=== PATIENT | female | born 1990 | race African-American/Black ===

== ENCOUNTER 2017-12-26 09:30 | Emergency (ER) | payer MEDICAID, OTHER ==
[2017-12-26 10:42] LABS: Bilirubin Negative (Negative); Blood, Urine Large (Negative); Clarity TURBID (Clear); Glucose, Urine (Dipstick) Negative (Negative); Leukocyte Large (Negative); Nitrite Positive (Negative); Protein, Urine (Dipstick) 100 mg/dL (Neg-Trace); Specific Gravity, Urine 1.025 (1.002-1.036); Urobilinogen 0.2 mg/dL (0.2-1.0); pH, Urine 5.5 (5.0-9.0)
[2017-12-26 10:44] LABS: Pregnancy Test - Urine (BHCG) Negative (Negative); Pregu Control Background? CLEAR/WHITE (CLR/WHITE); Pregu Control Bar Appear? YES (CONTROL BAR); Specific Gravity 1.025 (1.002-1.036)
[2017-12-26 10:49] LABS: Bacteria/HPF 3+ HPF (None Seen); Hyaline Casts/LPF 7-10 HYALINE CAST LPF (0-3 Hyaline); Pathc Cast-AUWi Flag 2.02 (0-2.49); Squamous Epithelial 0-3 HPF (0-3)
[2017-12-26 11:01] LABS: RBC/HPF 21-50 HPF (0-3); Yeast-All Forms None Seen HPF (None Seen)
== END 2017-12-26 17:04 | disposition home or self-care (01) ==
LOC: ERS 09:30
DX: N12 Tubulo-interstitial nephritis, not specified as acute or chronic (principal); G43.909 Migraine, unspecified, not intractable, without status migrainosus; F17.210 Nicotine dependence, cigarettes, uncomplicated
CPT/HCPCS: 81003; 81015; 81025; 99283

== ENCOUNTER 2017-12-28 07:32 | Emergency (ER) | payer MEDICAID ==
[2017-12-28 08:25] LABS: Bilirubin Negative (Negative); Blood, Urine Trace (Negative); Clarity CLEAR (Clear); Glucose, Urine (Dipstick) Negative (Negative); Leukocyte Small (Negative); Nitrite Negative (Negative); Protein, Urine (Dipstick) Trace mg/dL (Neg-Trace); Specific Gravity, Urine 1.014 (1.002-1.036); pH, Urine 6.5 (5.0-9.0)
[2017-12-28 08:27] LABS: Bacteria/HPF None Seen HPF (None Seen); Hyaline Casts/LPF 0-3 HYALINE CAST LPF (0-3 Hyaline); Pathc Cast-AUWi Flag 0.14 (0-2.49); WBC/HPF 21-50 HPF (0-3)
[2017-12-28 08:29] LABS: Pregnancy Test - Urine (BHCG) Negative (Negative); Pregu Control Background? CLEAR/WHITE (CLR/WHITE); Pregu Control Bar Appear? YES (CONTROL BAR); Specific Gravity 1.014 (1.002-1.036)
[2017-12-28 08:36] LABS: #Eosinphils 0.1 thou/uL (0.0-0.7); #Lymphocytes 1.1 thou/uL (1.20-3.40); #Neutrophils 7.1 thou/uL (1.40-6.50); %Basophils 0.3 % (0.0-1.0); %Lymphocytes 11.6 % (21.0-51.0); %Monocytes 10.4 % (0.0-10.0); %Neutrophils 76.7 % (42.0-75.0); Hemoglobin 13.5 g/dL (12.0-16.0); Mean Corpuscular HGB CONC 32.9 g/dL (32.0-36.0); Mean Corpuscular Hemoglobin 31.4 pg (27.0-31.0); Mean Corpuscular Volume 95.4 fl (81.0-99.0); Mean Platelet Volume 8.8 fL (7.4-10.4); Platelet Count 211 thou/uL (130-400); RBC Distribution Width 11.9 % (11.5-14.5); Red Blood Cell (RBC) Count 4.31 mill/uL (4.20-5.40); White Blood Cell (WBC) Count 9.2 thou/uL (4.8-10.8)
[2017-12-28 08:36] LABS: Renal Epithelial 0-3 HPF (0-3); Transitional Epithelial 0-3 HPF (0-3)
[2017-12-28 08:38] LABS: BHCG - Serum Negative (NEGATIVE); Pregs Control Background? CLEAR/WHITE (CLR/WHITE); Pregs Control Bar Appear? YES (CONTROL BAR)
[2017-12-28 08:46] LABS: ALT (SGPT) 16 U/L (8-55); AST (SGOT) 14 U/L (5-34); Albumin 4.1 g/dL (3.5-5.0); Alkaline Phosphatase 60 U/L (40-150); Anion Gap 10 mmol/L (10-20); BUN (Urea Nitrogen) 6 mg/dL (7.0-18.7); Bilirubin, Total 0.3 mg/dL (0.2-1.2); Calc. Creatinine Clearance 0 mL/min (70-130); Calcium 9.5 mg/dL (7.8-10.44); Carbon Dioxide 24 mmol/L (22-29); Chloride 105 mmol/L (98-107); Estimated GFR-MDRD Greater than 90; Globulin 3.1 g/dL (2.4-3.5); Glucose 79 mg/dL (70-105); Lipase 16 U/L (8-78); Potassium 3.3 mmol/L (3.5-5.1); Protein, Total 7.2 g/dL (6.0-8.3); Sodium 136 mmol/L (136-145)
[2017-12-28] MEDS ORDERED: Ketorolac Tromethamine 30 MG/ML VIAL ONE (09:02)
--- NOTE | 2017-12-28 09:17 | CT ---
CT ABDOMEN AND PELVIS WITHOUT CONTRAST: Date: 12/28/17 INDICATION: UTI symptoms for 2 days, currently on antibiotics, without fever or chills. FINDINGS: No renal or ureteral calculus is evident. No hydronephrosis is noted. The partially distended bladder appears within normal limits. No free fluid or enlarged lymph nodes are evident. Unopacified liver, spleen, pancreas, adrenal glands, bowel, and uterus appear within normal limits. T here is a normal appendix in the right lower quadrant. There are numerous phleboliths within the lowe r pelvis. A small amount of free fluid is seen within the pelvis. No acute osseous abnormality is ching dent. IMPRESSION: No acute abnormality. POS: CET
[2017-12-28] MEDS ORDERED: Meropenem 1 GM in Sodium Chloride 0.9% 100 ML IVPB SCH (09:30)
== END 2017-12-28 11:09 | disposition home or self-care (01) ==
LOC: ERS 07:32
DX: N30.01 Acute cystitis with hematuria (principal); G43.909 Migraine, unspecified, not intractable, without status migrainosus; F17.210 Nicotine dependence, cigarettes, uncomplicated; Z79.899 Other long term (current) drug therapy
CPT/HCPCS: 36415; 74176; 80053; 81003; 81015; 81025; 83605; 83690; 84703; 85025; 87040; 87086; 96361; 96365; 96375; J1885; J1956; J2185; J7050

== ENCOUNTER 2018-04-17 21:30 | Emergency (ER) | payer MEDICAID, SELFPAY ==
[2018-04-18 00:14] LABS: #Basophils 0.1 thou/uL (0.0-0.2); #Eosinphils 0.1 thou/uL (0.0-0.7); #Lymphocytes 2.5 thou/uL (1.20-3.40); #Monocytes 0.5 thou/uL (0.11-0.59); %Basophils 1.1 % (0.0-1.0); %Eosinophils 1.7 % (0.0-10.0); %Lymphocytes 34.4 % (21.0-51.0); %Monocytes 6.7 % (0.0-10.0); Hemoglobin 13.8 g/dL (12.0-16.0); Mean Corpuscular HGB CONC 34.3 g/dL (32.0-36.0); Mean Corpuscular Hemoglobin 31.8 pg (27.0-31.0); Mean Corpuscular Volume 92.7 fL (78.0-98.0); Mean Platelet Volume 8.9 fL (7.4-10.4); Platelet Count 214 thou/uL (130-400); RBC Distribution Width 11.9 % (11.5-14.5); Red Blood Cell (RBC) Count 4.33 mill/uL (4.20-5.40); White Blood Cell (WBC) Count 7.2 thou/uL (4.8-10.8)
[2018-04-18] MEDS ORDERED: Ketorolac Tromethamine 60 MG/2 ML VIAL ONE (00:39)
[2018-04-18 01:04] LABS: ALT (SGPT) 17 U/L (8-55); AST (SGOT) 17 U/L (5-34); Albumin 4.3 g/dL (3.5-5.0); Alkaline Phosphatase 66 U/L (40-150); Anion Gap 13 mmol/L (10-20); BUN (Urea Nitrogen) 11 mg/dL (7.0-18.7); Bilirubin, Total 0.4 mg/dL (0.2-1.2); Calc. Creatinine Clearance 0 mL/min (70-130); Calcium 9.3 mg/dL (7.8-10.44); Carbon Dioxide 22 mmol/L (22-29); Chloride 105 mmol/L (98-107); Estimated GFR-MDRD Greater than 90; Glucose 98 mg/dL (70-105); Potassium 3.5 mmol/L (3.5-5.1); Protein, Total 7.3 g/dL (6.0-8.3); Sodium 136 mmol/L (136-145)
[2018-04-18 01:09] LABS: CKMB 0.4 ng/mL (0-6.6); Troponin I Less than 0.010 ng/mL (< 0.028)
[2018-04-18 01:22] LABS: Pregnancy Test - Urine (BHCG) Negative (Negative); Pregu Control Background? CLEAR/WHITE (CLR/WHITE); Pregu Control Bar Appear? YES (CONTROL BAR)
== END 2018-04-18 02:04 | disposition home or self-care (01) ==
LOC: ERS 21:30
DX: M54.12 Radiculopathy, cervical region (principal); M62.838 Other muscle spasm; G43.909 Migraine, unspecified, not intractable, without status migrainosus; F17.210 Nicotine dependence, cigarettes, uncomplicated; Z79.82 Long term (current) use of aspirin
CPT/HCPCS: 36415; 80053; 81025; 82553; 84443; 84484; 85025; 93005; 96372; J1885

== ENCOUNTER 2024-07-22 09:43 | Day surgery (SDC) | payer OTHER ==
[2024-07-22] MEDS ORDERED: Acetaminophen 500 MG TAB ONE (10:05)
[2024-07-22] MEDS: Acetaminophen 500 MG TAB PO SCH (10:08)
[2024-07-22] MEDS: Iron Sucrose Complex 500 MG in Sodium Chloride 0.9% 250 ML 250 ML IVPB SCH (10:31)
[2024-07-22 10:54] VITALS: BP 121/63; TEMP 98.2
[2024-07-22] MEDS ORDERED: SODIUM FERRIC GLUCONATE IVPB SCH (12:00)
[2024-07-22] MEDS ORDERED: SODIUM CHLORIDE 0.9% IVPB SCH (12:00)
== END 2024-07-22 15:20 | disposition home or self-care (01) ==
LOC: ONC/OP 09:43
PROVIDERS: ATTEND Family Medicine
DX: D64.9 Anemia, unspecified (principal)
CPT/HCPCS: 96365; 96366; J1756; J2916; J7050